=== PATIENT | male | born 1955 | race Caucasian/White ===

== ENCOUNTER 2016-12-30 20:52 | Emergency (ER) | payer OTHER ==
[~2016-12-30 20:52] MED LIST: AZITHROMYCIN250 MG PO; COUMADIN5 MG PO; LEVAQUIN500 MG PO; METOPROLOL SUCC25 MG PO; PREDNISONE20 MG PO; PROVENTIL HFA6.7 GM INH; SIMVASTATIN40 MG PO; SPIRIVA RESPIMAT4 G1 INH; VENTOLIN HFA18 GM INH; VITAMIN D35000 UNIT PO
[2016-12-30] MEDS ORDERED: DILTIAZEM 24HR180 MG PO (21:08)
[2016-12-30] MEDS ORDERED: COUMADIN7.5 MG PO (21:09)
[2016-12-30] MEDS ORDERED: PROVENTIL HFA6.7 GM INH (21:10)
[2016-12-30] MEDS ORDERED: VITAMIN D1000 UNIT PO (21:11)
[2016-12-30] MEDS ORDERED: FLOVENT HFA10.6 GM INH (23:35)
[2016-12-30] MEDS ORDERED: TESSALON PERLE100 MG PO (23:36)
--- NOTE | 2016-12-31 18:24 | EKG ---
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
== END 2016-12-30 23:45 | disposition home or self-care (01) ==
LOC: ED 20:52
DX: J44.9 Chronic obstructive pulmonary disease, unspecified (principal); I10 Essential (primary) hypertension; E78.5 Hyperlipidemia, unspecified; I48.91 Unspecified atrial fibrillation; Z88.0 Allergy status to penicillin; Z87.891 Personal history of nicotine dependence; Z79.01 Long term (current) use of anticoagulants; Z79.899 Other long term (current) drug therapy; Z95.2 Presence of prosthetic heart valve
CPT/HCPCS: 71010; 80053; 84484; 85025; 85610; 85730; 93005; 93010; 94640; 99284

== ENCOUNTER 2019-07-23 16:16 | Emergency (ER) | payer OTHER ==
[~2019-07-23] VITALS: Ht 177.8 cm; Wt 81.7 kg
[~2019-07-23 16:16] MED LIST changes: +COUMADIN7.5 MG PO; +DILTIAZEM 24HR180 MG PO; +DILTIAZEM 24HR240 MG PO; +FLOVENT HFA10.6 GM INH; +TESSALON PERLE100 MG PO; +VITAMIN D1000 UNIT PO
[2019-07-23] MEDS ORDERED: CYCLOBENZAPRINE10 MG PO (16:25)
[2019-07-23] MEDS ORDERED: MELATONIN1 MG PO (16:26)
== END 2019-07-23 18:18 | disposition home or self-care (01) ==
LOC: ED 16:16
DX: R60.0 Localized edema (principal); R79.1 Abnormal coagulation profile; I10 Essential (primary) hypertension; E78.5 Hyperlipidemia, unspecified; J44.9 Chronic obstructive pulmonary disease, unspecified; I48.91 Unspecified atrial fibrillation; Z86.73 Personal history of transient ischemic attack (TIA), and cerebral infarction without residual deficits; Z87.891 Personal history of nicotine dependence; Z88.0 Allergy status to penicillin; Z79.899 Other long term (current) drug therapy; Z79.01 Long term (current) use of anticoagulants
CPT/HCPCS: 85025; 85610; 99283

== ENCOUNTER 2021-07-20 12:55 | Emergency (ER) | payer MEDICARE, OTHER ==
[~2021-07-20] VITALS: Ht 177.8 cm; Wt 81.7 kg
[~2021-07-20 12:55] MED LIST changes: +CYCLOBENZAPRINE10 MG PO; +MELATONIN1 MG PO
[2021-07-20] MEDS ORDERED: ONDANSETRON ODT4 MG SL (17:26)
[2021-07-20] MEDS ORDERED: FLOMAX0.4 MG PO (17:26)
[2021-07-20] MEDS ORDERED: MACROBID 100 M100 MG PO (17:26)
[2021-07-20] MEDS ORDERED: DILAUDID2 MG PO (17:26)
== END 2021-07-20 17:57 | disposition home or self-care (01) ==
LOC: ED 12:55
DX: N13.2 Hydronephrosis with renal and ureteral calculous obstruction (principal); I10 Essential (primary) hypertension; E78.5 Hyperlipidemia, unspecified; J44.9 Chronic obstructive pulmonary disease, unspecified; I48.91 Unspecified atrial fibrillation; Z79.01 Long term (current) use of anticoagulants; Z20.822 Contact with and (suspected) exposure to COVID-19; Z87.891 Personal history of nicotine dependence; Z88.0 Allergy status to penicillin; Z79.51 Long term (current) use of inhaled steroids; Z79.899 Other long term (current) drug therapy
CPT/HCPCS: 71045; 74177; 80053; 81001; 82553; 85025; 85610; 85730; 99284-25; C9803; J1885; J7030; Q9967; U0003